=== PATIENT | female | born 1990 | race Hispanic/Latino ===

== ENCOUNTER 2017-10-26 07:26 | Emergency (ER) | payer SELFPAY ==
[2017-10-26] MEDS ORDERED: Fentanyl 100 MCG/2 ML VIAL ONE (07:52)
[2017-10-26] MEDS ORDERED: Ketorolac Tromethamine 60 MG/2 ML VIAL ONE (07:52)
--- NOTE | 2017-10-26 08:28 | RAD ---
RIGHT SHOULDER THREE VIEWS: History: Trauma, fall. Comparison: None. FINDINGS: No acute displaced fracture or malalignment. Visualized ribs are unremarkable. IMPRESSION: No acute fracture or malalignment. POS: NARINDER
--- NOTE | 2017-10-26 08:42 | CT ---
NONCONTRAST CT SCAN CERVICAL SPINE: Date: 10-26-17 History: Right shoulder and neck pain after a fall last week. Trauma. Technique: Contiguous axial CT images are obtained through the cervical spine from the skull base to the T1-2 level. Sagittal and coronal reformatted images are provided. FINDINGS: There is straightening of the normal cervical lordotic curvature. The vertebral body heights and inte rvertebral disc spaces are within normal limits. No fracture or subluxation is seen involving the cer vical spine. Prevertebral soft tissues are within normal limits. IMPRESSION: No fracture or subluxation involving the cervical spine. POS: NARINDER
== END 2017-10-26 09:08 | disposition home or self-care (01) ==
LOC: ERS 07:26
DX: S16.1XXA Strain of muscle, fascia and tendon at neck level, initial encounter (principal); S46.911A Strain of unspecified muscle, fascia and tendon at shoulder and upper arm level, right arm, initial encounter; W01.0XXA Fall on same level from slipping, tripping and stumbling without subsequent striking against object, initial encounter
CPT/HCPCS: 72125; 96372; J1885; J3010

== ENCOUNTER 2019-08-06 08:31 | Outpatient (CLI) | payer MEDICAID ==
--- NOTE | 2019-08-06 08:59 | MMO ---
Bilateral MAMMO Bilat Diag [facility]. CLINICAL HISTORY: Patient is 29 years old and is seen for diagnostic exam and non-bloody discharge in the left breast. The patient has no family history of breast cancer. The patient has no personal history of cancer. VIEWS: The views performed were: bilateral craniocaudal with tomosynthesis; bilateral mediolateral oblique with tomosynthesis; and bilateral mediolateral with tomosynthesis. This study has been interpreted with the assistance of computer-aided detection. MAMMOGRAM FINDINGS: The breasts are almost entirely fat. There are no suspicious masses, suspicious calcifications, or areas of architectural distortion. IMPRESSION: THERE IS NO MAMMOGRAPHIC EVIDENCE OF MALIGNANCY. A ROUTINE FOLLOW-UP MAMMOGRAM AT AGE 38 IS RECOMMENDED. THE RESULTS OF THIS EXAM WERE SENT TO THE PATIENT. ACR BI-RADS Category 1 - Negative MAMMOGRAPHY NOTE: 1. A negative mammogram report should not delay a biopsy if a dominant of clinically suspicious mass is present. 2. Approximately 10% to 15% of breast cancers are not detected by mammography. 3. Adenosis and dense breasts may obscure an underlying neoplasm. Reported by: MORRIS ALLEN MD Electonically Signed: [id number]
== END 2019-08-06 08:32 | disposition home or self-care (01) ==
LOC: BICMAMMO 08:31
PROVIDERS: ATTEND Family Medicine
DX: N64.52 Nipple discharge (principal)
CPT/HCPCS: 77066; G0279

== ENCOUNTER 2023-09-25 17:59 | Emergency (ER) | payer SELFPAY | END 2023-09-25 18:40 | disposition home or self-care (01) | LOC: ERS 17:59 | DX: H92.03 Otalgia, bilateral (principal); J01.90 Acute sinusitis, unspecified | CPT/HCPCS: 99282 ==

== ENCOUNTER 2025-07-12 02:17 | Emergency (ER) | payer SELFPAY ==
[2025-07-12 06:15] LABS: #Basophils 0.05 10x3/uL (0.0-0.2); #Eosinophils 0.05 10x3/uL (0.0-0.7); #Monocytes 0.46 10x3/uL (0.11-0.59); #Neutrophils 6.74 10x3/uL (1.40-6.50); %Basophils 0.5 % (0.0-1.0); %Eosinophils 0.5 % (0.0-10.0); %Lymphocytes 23.0 % (21.0-51.0); %Monocytes 4.8 % (0.0-10.0); %Neutrophils 71.0 % (42.0-75.0); Hematocrit 41.9 % (36.0-47.0); Hemoglobin 13.7 g/dL (12.0-16.0); Mean Corpuscular Hemoglobin 28.5 pg (27.0-31.0); Mean Corpuscular Volume 87.1 fL (78.0-98.0); Platelet Count 302 10x3/uL (130-400); Red Blood Cell (RBC) Count 4.81 mill/uL (4.20-5.40); White Blood Cell (WBC) Count 9.51 10x3/uL (4.8-10.8)
[2025-07-12 06:27] LABS: BHCG - Serum Negative (NEGATIVE); Pregs Control Background? CLEAR/WHITE (CLR/WHITE); Pregs Control Bar Appear? YES (CONTROL BAR)
[2025-07-12 06:35] LABS: ALT (SGPT) 7 U/L (Less than 34); AST (SGOT) 11 U/L (11-34); Albumin 3.9 g/dL (3.1-4.5); Alkaline Phosphatase 71 U/L (40-110); Anion Gap 13 mmol/L (10-20); BUN (Urea Nitrogen) 15 mg/dL (7.0-18.7); Bilirubin, Total 0.4 mg/dL (0.3-1.2); Calc. Creatinine Clearance 0 mL/min (70-130); Calcium 8.6 mg/dL (7.8-10.44); Carbon Dioxide 22 mmol/L (22-29); Chloride 110 mmol/L (98-107); Globulin 3.3 g/dL (2.4-3.5); Glucose 83 mg/dL (70-105); Potassium 3.8 mmol/L (3.5-5.1); Sodium 141 mmol/L (136-145)
[2025-07-12] MEDS ORDERED: Ibuprofen 200 MG TAB ONE ×2 (08:23→08:24)
[2025-07-12 09:37] LABS: Bacteria/HPF None Seen HPF (None Seen); CAUTI Indications for Culture Alt mental st,lethar; Glucose, Urine (Dipstick) Normal (Negative); Leukocyte Negative Leu/uL (Negative); Protein, Urine (Dipstick) Negative (Neg-Trace); RBC/HPF 21-50 HPF (0-3); Specific Gravity, Urine 1.024 (1.002-1.036); WBC/HPF 0-3 HPF (0-3)
[2025-07-12 09:40] LABS: Urine Culture Reflex No No
== END 2025-07-12 09:20 | disposition home or self-care (01) ==
LOC: ERS 02:17
DX: R55 Syncope and collapse (principal); R51.9 Headache, unspecified; G62.9 Polyneuropathy, unspecified
CPT/HCPCS: 70450; 80053; 81001; 84484; 84703; 85025; 93005